=== PATIENT | female | born 1970 | race Caucasian/White ===

== ENCOUNTER → 2020-05-31 | Outpatient (CLI) | payer BC | LOC: COL.RAD 09:30 | DX: R05 Cough (principal) | CPT/HCPCS: Q9967 ==

== ENCOUNTER → 2020-06-11 | Outpatient (CLI) | payer BC | LOC: COL.PUL 06-07 11:20 | DX: R05 Cough (principal) ==

== ENCOUNTER → 2020-06-19 | Outpatient (CLI) | payer BC | LOC: COL.PUL 12:13 | DX: R05 Cough (principal); F17.200 Nicotine dependence, unspecified, uncomplicated ==

== ENCOUNTER → 2020-08-17 | Outpatient (CLI) | payer BC | LOC: COL.PUL 10:00 | DX: R05 Cough (principal); F17.200 Nicotine dependence, unspecified, uncomplicated | CPT/HCPCS: J7674 ==